=== PATIENT | male | born 1970 | race Caucasian/White ===

== ENCOUNTER → 2018-04-11 | Outpatient (CLI) | payer OTHER ==
[~2018-04-11] MED LIST: ASPI-496 PO; DULO30CA2 PO; GABA600T7 PO; LISI1TAB5 PO; NAPR220C2 PO; OMEP20TA62 PO; TOPI50TA8 PO; Vitamin B-12 INJ
[2018-04-11 13:54] LABS: MICROSCOPIC NOT IND
[2018-04-11 13:58] LABS: BASOPHILS # (AUTO) 0.07 x10^3/uL (0-0.1); BASOPHILS % (AUTO) 1 % (0-1); EOSINOPHILS # (AUTO) 0.11 x10^3/uL (0-0.4); EOSINOPHILS % (AUTO) 2 % (1-7); LYMPHOCYTES # (AUTO) 1.41 x10^3/uL (1-3.4); LYMPHOCYTES % (AUTO) 19 % (22-44); MD NO; MEAN CORPUSCULAR HEMOGLOBIN 31.6 pg (27.5-34.5); MEAN CORPUSCULAR HGB CONC 34.1 g/dL (33.2-36.2); MEAN CORPUSCULAR VOLUME 92.6 fL (81-97); MEAN PLATELET VOLUME 7.6 fL (7.4-10.4); MONOCYTES # (AUTO) 0.53 x10^3/uL (0.2-0.8); MONOCYTES % (AUTO) 7 % (2-9); NEUTROPHILS # (AUTO) 5.16 x10^3/uL (1.8-6.8); NEUTROPHILS % (AUTO) 71 % (42-75); PLATELET COUNT 318 x10^3/uL (130-400); RED BLOOD COUNT 4.98 x10^6/uL (4.38-5.82); RED CELL DISTRIBUTION WIDTH 13.7 % (9.4-14.8)
[2018-04-11 14:07] LABS: ALANINE AMINOTRANSFERASE 31 U/L (12-78); ALBUMIN 3.5 g/dL (3.4-5.0); ANION GAP 7 mmol/L (5-15); CALCIUM 8.2 mg/dL (8.5-10.1); CHLORIDE 109 mmol/L (98-107); CREATININE 1.22 mg/dL (0.7-1.3)
[2018-04-11 14:09] LABS: ALKALINE PHOSPHATASE 135 U/L (45-117); BILIRUBIN,TOTAL 0.4 mg/dL (0.2-1.0); TOTAL PROTEIN 6.9 g/dL (6.4-8.2)
== END | disposition home or self-care (01) ==
LOC: STAR 12:42
PROVIDERS: ATTEND Urology
DX: Z01.818 Encounter for other preprocedural examination (principal); C61 Malignant neoplasm of prostate
CPT/HCPCS: 36415; 80053; 81003; 85025; 87086; 93005

== ENCOUNTER 2018-04-24 10:47 | Inpatient (IN) | payer OTHER ==
[~2018-04-24] VITALS: Ht 198.1 cm; Wt 146.3 kg
[~2018-04-24 10:47] MED LIST changes: +BUPIVACAINE/PF 0.25% ONE; +EPINEPHRINE 1 MG/ML, 1ML ONE; +THROMBIN 5,000 UNIT VIAL TP ONE
[2018-04-24 11:20] VITALS: BP 126/90
[2018-04-24] MEDS ORDERED: LACTATED RINGERS 1,000 ML IV SCH (11:22)
[2018-04-24] MEDS ORDERED: PROPOFOL 10 MG/ML, 20ML ONE ×2 (13:21→17:58)
[2018-04-24] MEDS ORDERED: DEXAMETHASONE 4 MG/ML, 5ML ONE (13:21)
[2018-04-24] MEDS ORDERED: METOCLOPRAMIDE 5 MG/ML, 2ML ONE (13:21)
[2018-04-24] MEDS ORDERED: MIDAZOLAM 1 MG/ML, 2ML ONE (13:28)
[2018-04-24] MEDS ORDERED: FENTANYL PF 250 MCG/5ML ONE ×2 (13:28→16:52)
[2018-04-24] MEDS ORDERED: BUPIVACAINE/PF-EPI 0.25% 1:200K INFIL ONE (14:27)
[2018-04-24] MEDS ORDERED: LABETALOL 5MG/ML, 20ML IV PRN (15:30)
[2018-04-24] MEDS ORDERED: MIDAZOLAM 1 MG/ML, 2ML IV PRN (15:30)
[2018-04-24] MEDS ORDERED: ONDANSETRON 2MG/ML, 2ML IVPush PRN (15:30)
[2018-04-24] MEDS ORDERED: OXYcodone 5 MG/5 ML ORAL.SOL UDC PO PRN (15:30)
[2018-04-24] MEDS ORDERED: MEPERIDINE/PF 25MG/0.5ML IVPush PRN (15:30)
[2018-04-24] MEDS ORDERED: ONDANSETRON 2MG/ML, 2ML ONE (17:58)
[2018-04-24] MEDS ORDERED: CEFAZOLIN 1,000 MG ONE ×5 (17:58)
[2018-04-24] MEDS ORDERED: NEOSTIGMINE 1 MG/ML, 10ML ONE (17:58)
[2018-04-24] MEDS ORDERED: SUCCINYLCHOLINE 20 MG/ML, 10ML ONE (17:58)
[2018-04-24] MEDS ORDERED: GLYCOPYRROLATE 0.2MG/1ML, 5ML ONE (17:58)
[2018-04-24] MEDS ORDERED: ROCURONIUM 10MG/ML,5ML ONE (17:58)
[2018-04-24] MEDS ORDERED: MEPERIDINE/PF 25MG/ML,1ML ONE (18:29)
[2018-04-24] MEDS ORDERED: FENTANYL PF 100 MCG/2ML ONE ×2 (18:30→18:44)
[2018-04-24] MEDS: FENTANYL PF 100 MCG/2ML IV PRN ×3 (18:41→19:04)
[2018-04-24] MEDS ORDERED: HYDROmorphone 2 MG/ML, 1ML ONE (18:44)
[2018-04-24] MEDS ORDERED: OXYcodone 5 MG/5 ML ORAL.SOL UDC ONE (18:44)
[2018-04-24] MEDS: HYDROmorphone 1 MG/ML, 1ML IV PRN ×3 (19:02→19:41)
[2018-04-24] MEDS ORDERED: LABETALOL 5 MG/ML SYRINGE IV PRN (19:30)
[2018-04-24] MEDS ORDERED: OPIUM/BELLADONNA SUPP.RECT 16.2-60 MG PR PRN (20:30)
[2018-04-24] MEDS ORDERED: ONDANSETRON 2MG/ML, 2ML IV PRN (20:30)
[2018-04-24] MEDS ORDERED: NAPROXEN 250 MG TABLET PO PRN (20:30)
[2018-04-24] MEDS ORDERED: TOPIRAMATE 25 MG TABLET PO SCH (21:00)
[2018-04-24] MEDS: GABAPENTIN 300 MG CAPSULE PO SCH (22:11)
[2018-04-24] MEDS: D5%-0.45NACL+KCL 20MEQ 1,000 ML IV SCH (22:12)
[2018-04-24] MEDS: HYDROcodone/APAP 10/325 MG TABLET PO PRN ×2 (22:55→23:48)
[2018-04-25 00:43] VITALS: BP 130/80
[2018-04-25] MEDS: morphine SULFATE 10 MG/ML, 1ML IV PRN ×2 (02:35→07:33)
[2018-04-25 04:06] VITALS: BP 117/72
[2018-04-25] MEDS: HYDROcodone/APAP 10/325 MG TABLET PO PRN ×3 (04:29→12:37)
[2018-04-25] MEDS: D5%-0.45NACL+KCL 20MEQ 1,000 ML IV SCH ×2 (04:29→09:41)
[2018-04-25 05:10] LABS: ANION GAP 5 mmol/L (5-15); CALCIUM 7.6 mg/dL (8.5-10.1); CHLORIDE 110 mmol/L (98-107)
[2018-04-25 05:12] LABS: CREATININE 1.04 mg/dL (0.7-1.3)
[2018-04-25] MEDS ORDERED: OMEPRAZOLE 20 MG CAPSULE.DR PO SCH (06:00)
[2018-04-25 07:30] VITALS: BP 141/76
[2018-04-25] MEDS ORDERED: ENOXAPARIN 40 MG/0.4 ML SQ SCH (08:00)
[2018-04-25] MEDS: GABAPENTIN 300 MG CAPSULE PO SCH (08:49)
[2018-04-25] MEDS ORDERED: DULOXETINE 30 MG CAPSULE.DR PO SCH (09:00)
[2018-04-25] MEDS ORDERED: LISINOPRIL 20 MG TABLET PO SCH (09:00)
[2018-04-25] MEDS ORDERED: HYDROCHLOROTHIAZIDE 12.5 MG CAPSULE PO SCH (09:00)
[2018-04-25 12:36] VITALS: BP 136/75
[2018-04-25] MEDS ORDERED: OXYC-302 PO (13:11)
[2018-04-25] MEDS ORDERED: DOCU-131 PO (13:12)
== END 2018-04-25 13:20 | disposition home or self-care (01) | DRG 708 ==
LOC: OUT 10:47 → EDSTATUS 13:00 → 4NOR 20:12 → OUT 20:36 → DCLOUNGE 04-25 13:10
PROVIDERS: ADMIT Urology; ATTEND Urology
PROC: 07BC4ZZ Excision of Pelvis Lymphatic, Percutaneous Endoscopic Approach (ICD-10-PCS; 2018-04-24)
PROC: 8E0W4CZ Robotic Assisted Procedure of Trunk Region, Percutaneous Endoscopic Approach (ICD-10-PCS; 2018-04-24)
PROC: 0VT04ZZ Resection of Prostate, Percutaneous Endoscopic Approach (ICD-10-PCS; principal; 2018-04-24 13:00)
DX: C61 Malignant neoplasm of prostate (principal); K21.9 Gastro-esophageal reflux disease without esophagitis; I10 Essential (primary) hypertension; F32.9 Major depressive disorder, single episode, unspecified; G89.29 Other chronic pain; F41.9 Anxiety disorder, unspecified; G47.33 Obstructive sleep apnea (adult) (pediatric); Z83.3 Family history of diabetes mellitus; Z82.49 Family history of ischemic heart disease and other diseases of the circulatory system; Z79.899 Other long term (current) drug therapy
CPT/HCPCS: 36415; J3490; 80048; 85014; 85018; 86850; 86900; 88305; 88309; C1729; G0378; J0171; J0690; J1100; J1170; J1650; J2175; J2250; J2405; J2704; J2710; J3010; C1760; J0330; J2270; J2765; J3480

== ENCOUNTER 2018-05-01 08:41 | Outpatient (CLI) | payer OTHER ==
[~2018-05-01 08:41] MED LIST changes: -BUPIVACAINE/PF 0.25% ONE; +DOCU-131 PO; -EPINEPHRINE 1 MG/ML, 1ML ONE; +OXYC-302 PO; -THROMBIN 5,000 UNIT VIAL TP ONE
== END 2018-05-01 23:59 | disposition home or self-care (01) ==
LOC: RAD 08:41
PROVIDERS: ATTEND Urology
DX: C61 Malignant neoplasm of prostate (principal)
CPT/HCPCS: 51600; 74430